=== PATIENT | male | born 1980 | race Caucasian/White ===

== ENCOUNTER 2017-03-20 21:52 | Observation (INO) | payer SELFPAY ==
--- NOTE | 2017-03-21 00:17 | ULT ---
TESTICULAR ULTRASOUND: HISTORY: Testicular pain. FINDINGS: Real-time imaging of the right and left testicles were performed. The right testicle is normal in s ize and appearance. It measures 4.8 cm. The left testicle shows a 1.2 cm hypoechoic area seen in the mid-portion of the testicle. Right and left epididymal regions are unremarkable. On Doppler evaluation with spectral analysis, increased flow was seen to the left testicle. The are a of the testicular mass shows very diminished and possibly no flow. IMPRESSION: Ill-defined hypoechoic area within the left testis measuring approximately 1.2 cm in diameter. Diff erential considerations would include orchitis with either an area of infarct or possibly developing area of abscess. Less likely possibility, given the lack of any definite flow in this region, woul d be a testicular neoplasm, but this is definitely not excluded. POS: EDILSON
[2017-03-21] MEDS ORDERED: cefTRIAXone\\ROCEPHIN 2 GM VIAL ONE (01:07)
[2017-03-21 01:24] LABS: #Eosinphils 0.1 thou/uL (0.0-0.7); #Lymphocytes 3.1 thou/uL (1.20-3.40); #Monocytes 1.1 thou/uL (0.11-0.59); #Neutrophils 8.3 thou/uL (1.40-6.50); %Basophils 0.3 % (0.0-1.0); %Lymphocytes 24.7 % (21.0-51.0); %Monocytes 8.3 % (0.0-10.0); Hematocrit 49.8 % (42.0-52.0); Mean Platelet Volume 8.2 fL (7.4-10.4); Red Blood Cell (RBC) Count 5.16 mill/uL (4.70-6.10); White Blood Cell (WBC) Count 12.7 thou/uL (4.8-10.8)
[2017-03-21] MEDS ORDERED: Fentanyl 100 MCG/2 ML VIAL ONE (01:34)
[2017-03-21 01:36] LABS: PTT 31.1 SEC (22.9-36.1); Prothrombin Time 13.2 SEC (12.0-14.7)
[2017-03-21 01:46] LABS: ALT (SGPT) 39 U/L (8-55); AST (SGOT) 20 U/L (5-34); Alkaline Phosphatase 87 U/L (40-150); Anion Gap 11 mmol/L (10-20); BUN (Urea Nitrogen) 11 mg/dL (8.9-20.6); Calc. Creatinine Clearance 0 mL/min (70-130); Calcium 9.4 mg/dL (7.8-10.44); Carbon Dioxide 32 mmol/L (22-29); Chloride 101 mmol/L (98-107); Estimated GFR-MDRD Greater than 90; Globulin 2.9 g/dL (2.4-3.5); Protein, Total 7.3 g/dL (6.0-8.3)
[2017-03-21] MEDS ORDERED: Acetaminophen 325 MG TAB PO PRN ×2 (02:49→06:59)
[2017-03-21] MEDS ORDERED: Ondansetron HCl/PF 4 MG/2 ML Vial IVP PRN ×2 (02:49→06:59)
[2017-03-21] MEDS ORDERED: HYDROcodone/Acetaminophen 5/325 mg Tablet PO PRN ×2 (02:49)
[2017-03-21] MEDS ORDERED: Morphine 2 MG/ML SYRINGE SLOW IVP PRN ×2 (02:49→09:04)
[2017-03-21] MEDS ORDERED: Ondansetron ODT 4 MG TAB SL PRN (02:49)
[2017-03-21 03:53] VITALS: BMI 34.0
[2017-03-21] MEDS ORDERED: Ondansetron ODT 4 MG TAB PO PRN (06:59)
[2017-03-21] MEDS ORDERED: Eucerin (Mineral Oil/Petrolatum,White) 30 gm Jar TOP PRN (06:59)
[2017-03-21] MEDS ORDERED: hydrALAZINE 20 MG/ML VIAL SLOW IVP PRN (06:59)
[2017-03-21] MEDS ORDERED: Chloraseptic Spray 180 ml Bottle PO PRN (06:59)
[2017-03-21] MEDS ORDERED: Diabetic Tussin 200 MG/10 ML UDCUP PO PRN (06:59)
[2017-03-21] MEDS ORDERED: Senokot 8.6 MG TAB PO PRN (06:59)
[2017-03-21] MEDS ORDERED: Loperamide HCl 2 MG CAP PO PRN (06:59)
[2017-03-21] MEDS ORDERED: Sodium Chloride 0.65% Nasal 44 ML BOT EA NARE PRN (06:59)
[2017-03-21] MEDS ORDERED: HYDROcodone/Acetaminophen 10/325 mg Tablet PO PRN (06:59)
[2017-03-21] MEDS ORDERED: Milk Of Magnesia 30 ML UDCUP PO PRN (06:59)
[2017-03-21] MEDS ORDERED: Zolpidem Tartrate 5 MG TAB PO PRN (06:59)
[2017-03-21] MEDS ORDERED: Loratadine 10 MG TAB PO PRN (06:59)
[2017-03-21] MEDS ORDERED: Mag-Al 1200 mg/1200 mg/30 ML UDCUP PO PRN (06:59)
[2017-03-21 08:16] LABS: Bilirubin Negative (Negative); Blood, Urine Negative (Negative); Glucose, Urine (Dipstick) Negative (Negative); Ketone, Urine Negative (Negative); Nitrite Negative (Negative); Protein, Urine (Dipstick) Negative (Neg-Trace)
[2017-03-21 08:21] LABS: Bacteria/HPF None Seen HPF (None Seen); Hyaline Casts/LPF 0-3 HYALINE CAST LPF (0-3 Hyaline); Squamous Epithelial None Seen HPF (0-3); WBC/HPF None Seen HPF (0-3)
[2017-03-21] MEDS: Famotidine 20 MG TAB PO SCH ×2 (08:33→19:52)
[2017-03-21] MEDS: Nicotine 21 MG PATCH TD SCH (08:36)
--- NOTE | 2017-03-21 10:09 | CT ---
CT OF ABDOMEN AND PELVIS NONCONTRAST: INDICATION: Left side pain. Left ureteral stone. FINDINGS: There is no urolithiasis or obstructive uropathy. No consolidation. There is mild volume loss at t he lung bases. Limited evaluation of solid abdominal organs, bowel, lymph nodes, and vasculature on the basis of noncontrast technique. There are colonic diverticula. No free air or drainable fluid collection on the basis of noncontrast technique. Fat-containing periumbilical hernia without asso ciated inflammation. IMPRESSION: 1. No urolithiasis or obstructive uropathy. 2. Additional details as described above. POS: MED
--- NOTE | 2017-03-21 13:11 | CON ---
DATE OF CONSULTATION: 03/21/2017 CHIEF COMPLAINT: Left testicular pain. HISTORY OF PRESENT ILLNESS: Mr. Maurice is a 36-year-old gentleman who presents with acute onse t left-sided testicular pain. It began 2 days ago. He presented to the emergency room last night. He denies any dysuria. Denies any fever or chills. He does state that he very heavy earlier that day and he awoke with the pain later that night. He underwent scrotal ultrasound in the [facility] room that demonstrated a hypoechoic area without flow approximately 1 cm in the left testicle. Denies a prior history of stone disease. PAST MEDICAL HISTORY: Hypertension. PAST SURGICAL HISTORY: Foot surgery and jaw surgery. CURRENT MEDICATIONS: Carvedilol. ALLERGIES: No known drug allergies. SOCIAL HISTORY: He smokes cigarettes on a regular basis. He drinks alcohol 3-4 evenings a week. D enies drug use. 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 FAMILY HISTORY: Noncontributory. REVIEW OF SYSTEMS: General: No weight loss. No fever. No chills. Respiratory: No shortness of breath or wheezing. Cardiovascular: No chest pain or palpitations. Gastrointestinal: He has note d an increase in gas, both burping and passing flatus and a large amount of bowel sounds over the la st 2 days. Denies diarrhea. Neurologic: No history of stroke or CVA. Extremities: No weakness i n the extremities. PHYSICAL EXAMINATION: GENERAL: He is awake and alert. He is in no distress. VITAL SIGNS: Blood pressure 138/82, pulse 82, temperature 98.6 and respiratory rate 16. HEENT: Normocephalic and atraumatic. NECK: Supple, without masses. CHEST: Clear to auscultation. CARDIOVASCULAR: Regular rate and rhythm. ABDOMEN: Soft and nontender. No palpable masses. Liver and spleen are palpable. No abdominal ten derness. GENITOURINARY: Penis is normal without lesions. Urethral meatus appears normal. Scrotum normal. No swelling or erythema. Right testicle palpably normal. Left testicle palpably normal without les ions or swelling. IMAGING DATA: Ultrasound of the scrotum 1.2 cm hypoechoic area within the left testicle with no ankita w. LABORATORY DATA: Urine testing; 4-6 red cells, no bacteria. White count 12.7, hemoglobin 17.1, hematocrit 49.8 and platelets 198. Chemistry: Sodium 140, potassium 3.6, chloride 101, carbon dioxide 32, BUN 11, creatinine 0.93 and glucose 106. IMPRESSION: Acute onset of left-sided testicular pain with a normal exam. There is no swelling or erythema. Scrotal ultrasound demonstrates a hypoechoic area consistent with a bleed. It is rare fo r testicular tumors present in this way, but further evaluation with alpha-fetoprotein, beta hCG reno l be obtained. It is also possible that he is having referred pain from ureteral stone, although th is would explain a normal physical exam, but would not explain the hypochromic area in the ultrasoun d. We will proceed with a CT without contrast to rule out this possibility. RECOMMENDATIONS: 1. Antibiotic therapy for possible orchitis. 2. CT scan to rule out ureteral stone. 3. Beta hCG and alpha-fetoprotein.
--- NOTE | 2017-03-21 14:46 | HP ---
PRIMARY CARE PHYSICIAN: [facility] call admission. REASON FOR ADMISSION: Acute left-sided testicular pain. HISTORY OF PRESENT ILLNESS: A 36-year-old male who has morbid obesity as well as tobacco abuse shana carlin, who initially came to the emergency room with complaint of left-sided testicular pain for abou t 1 day. The patient was feeling swelling, redness and warmth on the left side of testicle that kevin n was getting worse with ambulation and walking. He denies any dysuria, increased frequency, hematu marva. He denies any fever or chills. He denies any trauma. The patient does report that whenever h e stands or walks longer, then he will feel discomfort in his left inguinal region. He denies any s imilar problem in the past. He denies any previous sexually transmitted disease. He was reporting that his scrotum was also swollen and appeared tender with these symptoms. He initially went to [facility] and he was sent to our hospital for further evaluation. In the emergency room, jose rodrigues did ultrasound testicle and that showed ill-defined hyperechoic area within the left testis abou t 1.2 cm in diameter. Subsequently, this patient was admitted for further evaluation. REVIEW OF SYSTEMS: The following complete review of systems was negative, unless otherwise mentione d in the HPI or below: CONSTITUTIONAL: Weight loss or gain, ability to conduct usual activities. SKIN: Rash, itching. EYES: Double vision, pain. ENT/MOUTH: Nose bleeding, neck stiffness, pain, tenderness. CARDIOVASCULAR: Palpitations, dyspnea on exertion, orthopnea. RESPIRATORY: Shortness of breath, wheezing, cough, hemoptysis, fever or night sweats. GASTROINTESTINAL: Poor appetite, abdominal pain, heartburn, nausea, vomiting, constipation, or diar ying. GENITOURINARY: Urgency, frequency, dysuria, nocturia. MUSCULOSKELETAL: Pain, swelling. NEUROLOGIC/PSYCHIATRIC: Anxiety, depression. ALLERGY/IMMUNOLOGIC: Skin rash, bleeding tendency. Please see my HPI for pertinent positives and negatives. All other review of system reviewed and ne gative except for that mentioned in the HPI. PAST MEDICAL HISTORY: The patient reports that he was told that he has hypertension, but he is not on any specific treatment, morbid obesity, tobacco abuse disorder. PAST SURGICAL HISTORY: Bilateral foot surgery, jaw surgery. PAST PSYCHIATRIC HISTORY: Reviewed and negative. SOCIAL HISTORY: Patient is . He smokes about 2 packs per day. He denies any alcohol or oth er illicit drug abuse. FAMILY HISTORY: No strong family history of premature coronary artery disease, stroke or cancer. ALLERGIES: ALEVE. CURRENT HOME MEDICATIONS: Patient is not taking any prescribed or non-prescribed medication. EMERGENCY ROOM COURSE: Patient was given Levaquin 750 mg, Rocephin 2 gram, fentanyl 100 microgram a nd morphine 8 mg. PHYSICAL EXAMINATION: VITAL SIGNS: On arrival, blood pressure 136/79, pulse 87, respiratory rate 18, temperature 99.1, sa turation 94% on room air. Weight 145.1 kilograms. GENERAL: Patient is currently alert, awake, no obvious acute distress. HEAD: Normocephalic, atraumatic. Eyes: Pupils round, reactive to light. Extraocular muscle intac t. ENT: Oropharynx within normal limits. Moist mucous membranes. No oral lesions. No pharyngeal krishna thema, no exudate. NECK: Supple. Range of motion is normal. No meningeal signs of irritation. LUNGS: Clear to auscultation without any rhonchi or rales. CARDIAC: S1, S2 regular without any murmur. ABDOMEN: Soft, bowel sounds present, nontender, nondistended. No organomegaly, no mass, no suprapu bic tenderness. No hernia. GENITALIA: The patient feels left testicle tenderness, but no swelling noted. No superficial eryth sapphire or scrotal cellulitis noted. Lower extremity, no edema. Good peripheral pulsation. Passive mo vement of all joints are normal. Upper extremity: Passive movement of all joints are normal. PSYCHIATRIC: Normal affect. HEMATOLOGICAL: No lymphadenopathy. NEUROLOGIC: The patient is alert and oriented x3. Cranial nerves II-XII intact. No focal neurolog ical deficits noted. SIGNIFICANT LABS: Testicular ultrasound reported ill-defined hyperechoic area within the left testi kavitha about 1.[address] of the abdomen and pelvis noncontrast done, which showed no urolit hiasis or obstructive uropathy that showed diverticulosis, periumbilical hernia without inflammation . CBC: WBC 12.7, hemoglobin 17.1, platelets 198. INR 1.0. BMP: Sodium 140, potassium 3.6, chloride 101, carbon dioxide 32, BUN 11, creatinine 0.93, glucose 106, calcium 9.6. LFT: AST 20, ALT 39, a lkaline phosphatase 87, albumin 4.4. Beta hCG less than 1.20. Urinalysis normal. ASSESSMENT AND PLAN/IMPRESSION: 1. Acute left testicular pain, etiology uncertain, but testicular ultrasound showed 1.2 cm hyperech oic area. This patient does not have any palpable mass at this point, given acute onset underlying infectious etiologies possible but less likely. We will treat as if orchitis as there is concern of underlying testicular tumor and that is why we will send tumor marker with beta hCG and alpha fetop rotein level if that normal, then this patient will not need any further testing or treatment, other than empiric antibiotic therapy upon discharge and he is advised to follow up with Urology after th at we will control his pain with pain medication. 2. Obesity with BMI 34. Weight loss education given. Healthy lifestyle measures discussed with th e patient. 3. Tobacco abuse disorder. Smoking cessation counseling given and while in hospital, we will use n icotine replacement therapy. 4. Deep venous thrombosis prophylaxis not needed because we are expecting discharge in 24 hours. 5. Gastrointestinal prophylaxis, Pepcid 20 mg p.o. b.i.d. 6. Code status: The patient is FULL CODE. The patient is making his decision by himself. Disposition plan within 24 hours. At this point, we will continue with IV antibiotic therapy and to jessica, we will consider discharging him home on p.o. ciprofloxacin.
[2017-03-21] MEDS: Ketorolac Tromethamine 30 MG/ML VIAL IVP PRN (19:52)
[2017-03-22] MEDS ORDERED: cefTRIAXone\\ROCEPHIN 2 GM, Admixture Fee 1 EACH in Sodium Chloride 0.9% 100 ML IVPB SCH (02:00)
[2017-03-22 05:27] LABS: #Eosinphils 0.1 thou/uL (0.0-0.7); #Monocytes 0.9 thou/uL (0.11-0.59); #Neutrophils 7.1 thou/uL (1.40-6.50); %Basophils 0.4 % (0.0-1.0); %Eosinophils 1.2 % (0.0-10.0); %Lymphocytes 26.7 % (21.0-51.0); %Monocytes 8.3 % (0.0-10.0); Hematocrit 48.6 % (42.0-52.0); Mean Platelet Volume 8.5 fL (7.4-10.4); Red Blood Cell (RBC) Count 5.04 mill/uL (4.70-6.10); White Blood Cell (WBC) Count 11.2 thou/uL (4.8-10.8)
[2017-03-22 05:47] LABS: ALT (SGPT) 34 U/L (8-55); AST (SGOT) 23 U/L (5-34); Alkaline Phosphatase 87 U/L (40-150); Anion Gap 12 mmol/L (10-20); BUN (Urea Nitrogen) 12 mg/dL (8.9-20.6); Bilirubin, Total 0.3 mg/dL (0.2-1.2); Calc. Creatinine Clearance 220 mL/min (70-130); Calcium 8.9 mg/dL (7.8-10.44); Carbon Dioxide 24 mmol/L (22-29); Chloride 106 mmol/L (98-107); Estimated GFR-MDRD Greater than 90; Globulin 2.8 g/dL (2.4-3.5); Protein, Total 6.6 g/dL (6.0-8.3)
[2017-03-22] MEDS: Famotidine 20 MG TAB PO SCH (07:38)
[2017-03-22 07:58] VITALS: BP 146/77; TEMP 97.5
[2017-03-22] MEDS: Ketorolac Tromethamine 30 MG/ML VIAL IVP PRN (08:45)
[2017-03-22] MEDS ORDERED: FLU VACC QS2017-18 36 mo. & older 0.5 ML SYRINGE IM ONE (09:00)
[2017-03-22] MEDS: Nicotine 21 MG PATCH TD SCH (09:50)
--- NOTE | 2017-03-22 11:21 | DIS ---
DATE OF ADMISSION: 03/21/2017 DATE OF DISCHARGE: 03/22/2017 PRIMARY CARE PHYSICIAN: [facility] call admission. DISCHARGE DISPOSITION: Home. PRIMARY DISCHARGE DIAGNOSIS: Acute left-sided testicular pain, likely due to orchitis. SECONDARY DISCHARGE DIAGNOSES: Obesity with body mass index 34, tobacco abuse disorder. PRIMARY PROCEDURE/OPERATION: None. RADIOLOGICAL INVESTIGATION: Testicular ultrasound showed left testis with 1.[address] of the abdomen and pelvis stone protocol was normal. CBC: WBC 11.2, hemoglobin 16.2, and platel ets 185. INR 1.0. BMP normal. LFTs normal. Alphafetoprotein level less than 2 and beta hCG is le ss than 1.20. Urinalysis normal. DISCHARGE MEDICATIONS: Ciprofloxacin 500 mg p.o. b.i.d. for 10 days, doxycycline 100 mg p.o. b.i.d. for 10 days, Florastor 250 mg p.o. daily. The patient is advised to resume his Coreg for hypertens ion. CONTRAINDICATIONS: None. CODE STATUS: FULL CODE. INPATIENT AUTO RENTAL SUPERVISOR: Dr. Yvonne Day was consulted while in hospital. TEST RESULTS PENDING ON DISCHARGE: None. ALLERGIES: NAPROXEN. DISCHARGE PLAN: Post hospital, patient will follow up with primary care physician as well as Dr. Jono mohr as advised. HOSPITAL COURSE: A 36-year-old male who was admitted by me yesterday for left testicular pain. In the emergency room, patient had testicular ultrasound which showed hypoechoic area about 1.2 cm in l eft testicle. There was concern of underlying tumor versus abscess. This patient was admitted to m edical floor. We consulted Urology and they examined this patient and they were not impressed with any abscess or any tumor type of feeling on his left testicle. As this patient was having left test icular pain, we suspected orchitis and we treated him with Levaquin while in hospital. He was also given Rocephin as well. His urinalysis is normal. We sent tumor marker that came back negative. Gia Russell ordered CT abdomen and pelvis to rule out any referred pain that was also normal. At thi s point, we are presumably treating for orchitis for another 10 days with oral antibiotic therapy an d the patient is advised to follow up with Dr. Russell. If he has persistent testicular pain, at th at time he can have another ultrasound done. The patient is seen and examined at bedside today. Review of systems reviewed with him and negative. Plan of care discussed with the family member. PHYSICAL EXAMINATION: VITAL SIGNS: Currently, temperature 97.5, pulse 73, respiratory rate 16, saturation 96%, blood pres sure 146/77, and weight 294 pounds. GENERAL: The patient is alert, awake, no acute distress. HEAD: Normocephalic, atraumatic. LUNGS: Clear. CARDIAC: S1 and S2 regular without any murmur. ABDOMEN: Soft and benign without any tenderness. EXTREMITIES: No edema. NEUROLOGIC: Nonfocal examination. DISCHARGE INSTRUCTIONS: The patient is medically stable for discharge today.
== END 2017-03-22 12:11 | disposition home or self-care (01) ==
LOC: ERS 21:52 → T4-A 03-21 02:48
PROVIDERS: ADMIT Internal Medicine; ATTEND Internal Medicine
DX: N50.812 Left testicular pain (principal); F17.210 Nicotine dependence, cigarettes, uncomplicated; I10 Essential (primary) hypertension; E66.01 Morbid (severe) obesity due to excess calories; Z68.34 Body mass index [BMI] 34.0-34.9, adult; Z88.6 Allergy status to analgesic agent; Z79.899 Other long term (current) drug therapy; Z98.890 Other specified postprocedural states
CPT/HCPCS: 36415; 74176; 76870; 80053; 81001; 82105; 84702; 85025; 85610; 85730; 90471; 90682; 90732; 93976; 96365; 96375; 96376; G0008; G0009; G0378; J0696; J1885; J1956; J2270; J3010; J7050; Q2036